=== PATIENT | female | born 1925 ===

== ENCOUNTER 2016-08-26 07:47 | Observation (INO) | payer OTHER ==
[2016-08-26 07:49] VITALS: BMI 20.9
--- NOTE | 2016-08-26 07:59 | ED PDOC ---
HPI: Back Time Seen by Provider: 08/26/16 07:54 Chief Complaint (Nursing): Back Pain Chief Complaint (Provider): back pain History Per: Patient History/Exam Limitations: no limitations Current Symptoms Are (Timing): Still Present Associated Symptoms: None Past Medical History Reviewed: Historical Data, Nursing Documentation, Vital Signs Vital Signs: Last Vital Signs Temp 97.9 F 08/26/16 07:49 Pulse 89 08/26/16 07:49 Resp 18 08/26/16 07:49 BP 149/85 08/26/16 07:49 Pulse Ox 100 08/26/16 07:49 - Medical History PMH: Anemia, Anxiety, Arthritis, CHF, Dementia, Depression, Gastritis, HTN, Hypercholesterolemia, Osteoporosis Denies: COPD, Hypothyroidism, Chronic Kidney Disease, Rheumatoid Arthritis - Surgical History Surgical History: Cholecystectomy (GB surgery , 3 yrs ago) - Family History Family History: States: Unknown Family Hx - Home Medications Home Medications: Ambulatory Orders Medication Instructions Recorded Enalapril Maleate 10 mg PO DAILY 12/04/14 Memantine HCl [Namenda Xr] 28 mg PO DAILY 12/04/14 Rivastigmine [Exelon 13.3 mg/24 hr 1 patch TD DAILY 12/04/14 Patch] Aspirin [Ecotrin] 81 mg PO DAILY 04/25/16 Atorvastatin [Lipitor] 40 mg PO HS 04/25/16 Carbamazepine [Carbamazepine ER] 300 mg PO TID 04/25/16 - Allergies Allergies/Adverse Reactions: Allergies Allergy/AdvReac Type Severity Reaction Status Date / Time No Known Allergies Allergy Verified 04/25/16 13:44 - ECG O2 Sat by Pulse Oximetry: 100 (RA) Pulse Ox Interpretation: Normal Medical Decision Making Medical Decision Making: Initial Impression: Back Pain Scribe Attestation: Documented by Sandee Chavez, acting as a scribe for Zachary Zabala MD. Provider Scribe Attestation: All medical record entries made by the Scribe were at my direction and personally dictated by me. I have reviewed the chart and agree that the record accurately reflects my personal performance of the history, physical exam, medical decision making, and the department course for this patient. I have also personally directed, reviewed, and agree with the discharge instructions and disposition.
--- NOTE | 2016-08-26 08:06 | ED PDOC ---
HPI: General Adult Time Seen by Provider: 08/26/16 07:54 Chief Complaint (Nursing): Back Pain Chief Complaint (Provider): back pain History Per: Patient History/Exam Limitations: no limitations Onset/Duration Of Symptoms: Days (x 4) Have you had recent travel within the past 21 days to any of the following countries: [place], [place], [place] or [place]?: No Additional Complaint(s): Felix Jacobson is an 89 year old female, with a previous medical history of hypertension, CHF, syncope and hypertension, who presents to the ED with complaints of back pain secondary to feeling dizzy and falling off her chair 4 days ago. At time of the fall patient reports no neck trauma, no head trauma or loss of consciousness. Patient denies currently having any chest pain, palpitations or headache. PMD: Sam Parada MD Past Medical History Reviewed: Historical Data, Nursing Documentation, Vital Signs Vital Signs: Last Vital Signs Temp 97.9 F 08/26/16 07:49 Pulse 89 08/26/16 07:49 Resp 18 08/26/16 07:49 BP 149/85 08/26/16 07:49 Pulse Ox 100 08/26/16 08:13 - Medical History PMH: Anemia, Anxiety, Arthritis, CHF, Dementia, Depression, Gastritis, HTN, Hypercholesterolemia, Osteoporosis Denies: COPD, Hypothyroidism, Chronic Kidney Disease, Rheumatoid Arthritis - Surgical History Surgical History: Cholecystectomy (GB surgery , 3 yrs ago) - Family History Family History: States: Unknown Family Hx - Home Medications Home Medications: Ambulatory Orders Medication Instructions Recorded Enalapril Maleate 10 mg PO DAILY 12/04/14 Memantine HCl [Namenda Xr] 28 mg PO DAILY 12/04/14 Rivastigmine [Exelon 13.3 mg/24 hr 1 patch TD DAILY 12/04/14 Patch] Aspirin [Ecotrin] 81 mg PO DAILY 04/25/16 Atorvastatin [Lipitor] 40 mg PO HS 04/25/16 Carbamazepine [Carbamazepine ER] 300 mg PO TID 04/25/16 - Allergies Allergies/Adverse Reactions: Allergies Allergy/AdvReac Type Severity Reaction Status Date / Time No Known Allergies Allergy Verified 04/25/16 13:44 Review of Systems ROS Statement: Except As Marked, All Systems Reviewed And Found Negative Cardiovascular: Negative for: Chest Pain, Palpitations Musculoskeletal: Positive for: Back Pain Neurological: Negative for: Headache Physical Exam - Reviewed Nursing Documentation Reviewed: Yes Vital Signs Reviewed: Yes - Physical Exam Appears: Positive for: Well, Non-toxic, No Acute Distress Head Exam: Positive for: ATRAUMATIC, NORMAL INSPECTION, NORMOCEPHALIC Neck: Positive for: Normal, Painless ROM, Supple Cardiovascular/Chest: Positive for: Regular Rate, Rhythm, Chest Non Tender Respiratory: Positive for: CNT, Normal Breath Sounds Back: Positive for: Vertebral Tenderness (lumbar spine tenderness with no defromity. Thoracic spine normal with no tenderness or deformity). Negative for : L CVA Tenderness, R CVA Tenderness Extremity: Positive for: Normal ROM (at the hip and lower extremities ). Negative for: Tenderness (to the hip or lower extremities ), Calf Tenderness, Deformity Neurologic/Psych: Positive for: Alert, Oriented. Negative for: Motor/Sensory Deficits - Laboratory Results Result Diagrams: 08/26/16 09:00 08/26/16 09:00 - ECG O2 Sat by Pulse Oximetry: 100 (RA) Pulse Ox Interpretation: Normal Medical Decision Making Medical Decision Making: Initial Impression: Back Pain Initial Plan: * CT head w/o contrast * EKG * labs * CXR * x-ray lumbar spine * x-ray pelvis * reevaluation Scribe Attestation: Documented by Sandee Chavez, acting as a scribe for Zachary Zabala MD. Provider Scribe Attestation: All medical record entries made by the Scribe were at my direction and personally dictated by me. I have reviewed the chart and agree that the record accurately reflects my personal performance of the history, physical exam, medical decision making, and the department course for this patient. I have also personally directed, reviewed, and agree with the discharge instructions and disposition. Disposition - Clinical Impression Clinical Impression: Near syncope - Patient ED Disposition Is Patient to be Admitted: Yes - Disposition Disposition Time: 09:53 Condition: FAIR - Pt Status Changed To: Hospital Disposition Of: Observation - POA Present On Arrival: None
[2016-08-26 09:08] LABS: BASO % 1.1 % (0.0-2.0); EOS # 0.1 K/uL (0.0-0.7); EOS % 3.2 % (0.0-4.0); HEMATOCRIT 37.9 % (34.0-47.0); LYMPH # 0.9 K/uL (1.0-4.3); LYMPH % 20.4 % (20.0-40.0); MEAN CELL VOLUME 96.5 fl (81.0-99.0); MEAN CORPUSCULAR HEMOGLOBIN 31.6 pg (27.0-31.0); MEAN CORPUSCULAR HGB CONC 32.7 g/dL (33.0-37.0); MEAN PLATELET VOLUME 8.2 fl (7.2-11.7); MONO # 0.3 K/uL (0.0-0.8); MONO % 7.1 % (0.0-10.0); NEUT # 3.1 K/uL (1.8-7.0); NEUT % 68.2 % (50.0-75.0); NRBC % 0.1 % (0.0-0.0); RED CELL DISTRIBUTION WIDTH 13.3 % (11.5-14.5); WHITE BLOOD COUNT 4.5 K/uL (4.8-10.8)
[2016-08-26 09:30] LABS: ALB/GLOB RATIO 1.4 (1.0-2.1); ALKALINE PHOSPHATASE 120 U/L (38-126); ALT/SGPT 32 U/L (9-52); AST/SGOT 38 U/L (14-36); BILIRUBIN,TOTAL 0.3 mg/dl (0.2-1.3); BLOOD UREA NITROGEN 16 mg/dl (7-17); CALCIUM 10.1 mg/dL (8.4-10.2); CARBON DIOXIDE 28 mmol/L (22-30); CHLORIDE 103 mmol/L (98-107); GFR AFRICAN-AMERICAN > 60; GLUCOSE,RANDOM 91 mg/dL (65-105); POTASSIUM 4.6 MMOL/L (3.6-5.0); SODIUM 140 mmol/l (132-148); TOTAL PROTEIN 7.2 G/DL (6.3-8.2)
--- NOTE | 2016-08-26 09:45 | CT ---
PROCEDURE: CT HEAD WITHOUT CONTRAST. HISTORY: r/o bleed COMPARISON: None available. TECHNIQUE: Axial computed tomography images were obtained through the head/brain without intravenous contrast. Radiation dose: Total exam DLP = 746 mGy-cm. This CT exam was performed using one or more of the following dose reduction techniques: Automated exposure control, adjustment of the mA and/or kV according to patient size, and/or use of iterative reconstruction technique. FINDINGS: HEMORRHAGE: No intracranial hemorrhage. BRAIN: No mass effect or edema. chronic microvascular ischemic changes. VENTRICLES: Unremarkable. No hydrocephalus. CALVARIUM: Unremarkable. PARANASAL SINUSES: Unremarkable as visualized. No significant inflammatory changes. MASTOID AIR CELLS: Unremarkable as visualized. No inflammatory changes. OTHER FINDINGS: None. IMPRESSION: No intracranial hemorrhage.
--- NOTE | 2016-08-26 11:04 | RAD ---
HISTORY: trauma COMPARISON: No prior FINDINGS: BONES: Normal. No fracture. JOINTS: Normal. No osteoarthritis. SOFT TISSUE: Normal. OTHER FINDINGS: None . IMPRESSION: Normal Bone Xray.
--- NOTE | 2016-08-26 11:08 | RAD ---
PROCEDURE: Radiographs of the Lumbar Spine. HISTORY: trauma r/o fx COMPARISON: No prior. FINDINGS: BONES: Mild loss of height of L1 vertebral body. Severe osteopenia. DISC SPACES: Unremarkable. OTHER FINDINGS: None. IMPRESSION: Mild loss of height of L1 vertebral body.
--- NOTE | 2016-08-26 11:11 | RAD ---
HISTORY: syncope COMPARISON: No prior. TECHNIQUE: Chest PA and lateral FINDINGS: LUNGS: No active pulmonary disease. PLEURA: No significant pleural effusion identified. No pneumothorax apparent. CARDIOVASCULAR: Normal. OSSEOUS STRUCTURES: No significant abnormalities. VISUALIZED UPPER ABDOMEN: Normal. OTHER FINDINGS: None. IMPRESSION: No active disease.
--- NOTE | 2016-08-26 11:29 | CARD ---
APPROVED REPORT EKG Measurement Heart [id number] VT 148P-8 [id number] <Conclusion> Normal sinus rhythm Normal ECG
--- NOTE | 2016-08-26 13:57 | CP.PCM.HP ---
History of Present Illness - History of Present Illness History of Present Illness: CC: Back pain. 89 y/o F brought to ER [facility] to be evaluated for Back pain, onset 4 days PHLEBOTOMIST LAB ASSISTANT, Pt taking Tramadol with no relief. 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 Aggravated factor : Worsening with movements/exercise. Hx of falls. Pt denied: Fever, chills, neck or head trauma, LOC, headache, abdominal pain, n/ v/d, slurred speech, numbness,CP, SOB, Urinary symptoms, sick contact, recent travel. PMHx: CHF. HTN, Syncope, O/A, Gastritis, Anemia, Hypercholesterolemia, Osteoporosis, Anxiety, depression, Dementia. EKG shows: Normal sinus rhythm. CXR: No active disease. CT Head: No intracranial hemorrhage. Lumbar Spine X-Ray: Severe Osteopenia. Pelvis X-Ray: WNL. Present on Admission - Present on Admission Any Indicators Present on Admission: No Review of Systems - Constitutional Constitutional: Weakness - EENT Eyes: Other (Glaucoma L eye) Ears: Decreased Hearing Nose/Mouth/Throat: Other (egative) - Cardiovascular Cardiovascular: Other (negative) - Respiratory Respiratory: Other (negative) - Gastrointestinal Gastrointestinal: Other (negative) - Genitourinary Genitourinary: Other (negative) - Musculoskeletal Musculoskeletal: Arthralgias, Back Pain, Muscle Weakness - Integumentary Integumentary: Other (negative) - Neurological Neurological: Dizziness, Frequent Falls - Psychiatric Psychiatric: Anxiety, Depression - Endocrine Endocrine: Other (negative) - Hematologic/Lymphatic Hematologic: Other (negative) Past Patient History - Infectious Disease Hx of Infectious Diseases: None - Past Medical History & Family History Past Medical History?: Yes Pertinent Family History: Unknown - Past Social History Smoking Status: Never Smoked Alcohol: None Drugs: Denies Home Situation {Lives}: With Family - CARDIAC Hx Cardiac Disorders: Yes Hx Congestive Heart Failure: Yes Hx Hypercholesterolemia: Yes Hx Hypertension: Yes Hx Hypotension: Yes (orthostatic) - PULMONARY Hx Chronic Obstructive Pulmonary Disease (COPD): No - NEUROLOGICAL Hx Neurological Disorder: Yes Hx Dementia: Yes - HEENT Hx HEENT Problems: Yes (hard of hearing) Hx Cataracts: Yes (L eye) - RENAL Hx Chronic Kidney Disease: No - ENDOCRINE/METABOLIC Hx Hypothyroidism: No - HEMATOLOGICAL/ONCOLOGICAL Hx Blood Disorders: Yes Hx Anemia: Yes - INTEGUMENTARY Hx Dermatological Problems: No - MUSCULOSKELETAL/RHEUMATOLOGICAL Hx Musculoskeletal Disorders: Yes Hx Arthritis: Yes Hx Falls: Yes Hx Osteoporosis: Yes Hx Rheumatoid Arthritis: No - GASTROINTESTINAL Hx Gastrointestinal Disorders: Yes Hx Gastritis: Yes - GENITOURINARY/GYNECOLOGICAL Hx Genitourinary Disorders: No - PSYCHIATRIC Hx Psychophysiologic Disorder: Yes Hx Anxiety: Yes Hx Depression: Yes Hx Substance Use: No - SURGICAL HISTORY Hx Surgeries: Yes Hx Cholecystectomy: Yes (GB surgery , 3 yrs ago) - ANESTHESIA Hx Anesthesia: Yes Hx Anesthesia Reactions: No Hx Malignant Hyperthermia: No Meds Allergies/Adverse Reactions: Allergies Allergy/AdvReac Type Severity Reaction Status Date / Time No Known Allergies Allergy Verified 04/25/16 13:44 Physical Exam - Constitutional Appears: No Acute Distress - Head Exam Head Exam: NORMAL INSPECTION - Eye Exam Eye Exam: PERRL - ENT Exam ENT Exam: Normal Oropharynx - Neck Exam Neck exam: Positive for: Normal Inspection - Respiratory Exam Respiratory Exam: NORMAL BREATHING PATTERN - Cardiovascular Exam Cardiovascular Exam: REGULAR RHYTHM, Systolic Murmur (1/6 LSB) - GI/Abdominal Exam GI & Abdominal Exam: Normal Bowel Sounds, Soft - Extremities Exam Extremities exam: Positive for: normal inspection - Back Exam Back exam: NORMAL INSPECTION - Neurological Exam Neurological exam: Alert Additional comments: Oriented x2, forgetful, no focal motor sensory deficit. - Psychiatric Exam Psychiatric exam: Depressed - Skin Skin Exam: Warm Results - Vital Signs Recent Vital Signs: Last Vital Signs Temp 97.9 F 08/26/16 07:49 Pulse 72 08/26/16 12:21 Resp 18 08/26/16 12:21 BP 149/85 08/26/16 07:49 Pulse Ox 97 08/26/16 12:21 reviewed J.P. - Labs Result Diagrams: 08/26/16 09:00 08/26/16 09:00 Labs: reviewed J.P. - EKG Data EKG comments: reviewed J.P. - Imaging and Cardiology Chest x-ray Status: Report reviewed by me (JJacquelineP.) CT scan - head Status: Report reviewed by me (JJacquelineP.) Additional comment: Pelvis X-Ray and Lumbar Spine X-Ray reviewed J.P. Assessment & Plan (1) Near syncope Status: Acute Priority: High (2) Hypertension Status: Chronic Priority: Medium (3) High cholesterol Status: Chronic Priority: Low (4) Osteopenia Status: Chronic Priority: Medium (5) Dementia Status: Chronic Priority: Low - Assessment and Plan (Free Text) Plan: F/U CT Lumbar Spine, Continue Aspirin 81 mg, Vasotec, Lovaza, Lipitor, Exelon patch, Oscal and rest of Tx, F/U PT eval, Neuro and Cardiac Consult. - Date & Time Date: 08/26/16 Time: 13:10
[2016-08-26] MEDS ORDERED: Ergocalciferol 50,000 Intl Units Cap PO SCH (15:00)
[2016-08-26] MEDS: Omega-3-Acid Ethyl Esters 1 GM Cap PO SCH (17:14)
--- NOTE | 2016-08-26 17:23 | CON ---
DATE: 08/26/2016 LOCATION: Room 408, bed 1. REASON FOR CONSULTATION: History of fall. CHIEF COMPLAINT: The patient was brought in to [facility] 4 days after her fall. From a neurological point of view, I was called in to evaluate her for neurological management. 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 Has been on medication and has been taking medication for her trigeminal neuralgia and peripheral neuropathy, being stable, used to followed me every 3 months. She used to walk with the assistance of a cane. She claims that on she was at home, she tripped and fell down on the floor and she got on her own. Prior to the fall, she felt lightheadedness. No association of loss of consciousness, bowel or bladder incontinence or bitten tongue. She denies any loss of consciousness as well as no change in mental status ever since she fell. She told the event to her son and her son advised her to come to the hospital for further evaluation. PAST MEDICAL HISTORY: CHF, history of syncopal attack in the past, hypertension , dementia, trigeminal neuralgia and hypothyroidism. PERSONAL HISTORY: Denies smoking or alcohol use. MEDICATIONS: She has been taking Exelon patch, Namenda, aspirin, carbamazepine and Vasotec. REVIEW OF SYSTEMS: As per H and P. PHYSICAL EXAMINATION: VITAL SIGNS: Blood pressure 126/63, mean arterial pressure of 84, respiratory rate 16, temperature afebrile. NECK: Supple. No carotid bruit. HEART: Sounds regular. CHEST: Has fair air entry. EXTREMITIES: No edema in legs. NEUROLOGIC EXAMINATION: The patient is awake, alert, oriented to person, place , and time. Speech is clear. Naming, repetition, fluency and comprehension are all intact. Her mentation is to her baseline. Her mentation is good for her age. No hallucinations. No suicidal ideation, no sign of depression. CRANIAL NERVE EXAMINATION: Responds to visual threat on both sides but no facial asymmetry. Hearing is normal. Tongue is midline. Good gag. MOTOR: Outstretched hand with eyes closed, no drift noted. Power is symmetric on either side. DEEP TENDON REFLEXES: Biceps, brachioradialis, triceps 2+ on either side. Both knees are 2+. Both ankles are absent. Plantars are downgoing. COORDINATION: [id number] test showed mild dysmetria. This is to her baseline. GAIT: Deferred at this time. CONCLUSION: Upon reviewing her history and neurological examination, the patient has been presenting with lightheadedness with the fall. From the fall, she did not hit her head. She did not hit any part of the body. The current examination does not show any lateralizing sign. WORKUP: A CT of the head reviewed by me, no acute pathology noted, mild atrophy noted. EKG: Normal sinus rhythm. BLOOD WORKUP: WBC 4.5, hemoglobin 12.4, hematocrit 37.9, platelets 185. Sodium 140, potassium 4.6, chloride 103, bicarbonate 28, BUN 16, creatinine more than 60. AST 38. RECOMMENDATIONS: 1. Check carbamazepine level and keep it therapeutic range. 2. Continue Namenda and Exelon patch as she has been getting it. If the patient is stable for the next 24-hour period, the patient can be discharged and can be followed by me as an outpatient. No further workup is needed. Sam Parada MD cc: [id number] TT: 08/26/2016 17:21:50 Confirmation # [id number] Dictation # [id number] dn MTDD
--- NOTE | 2016-08-26 20:50 | CON ---
DATE: 08/26/2016 REASON FOR CONSULTATION: Syncope. HISTORY OF PRESENT ILLNESS: The patient is an 89-year-old female who has a history of hyper tension and CHF. She presents because of a fall after feeling dizzy from her chair and sustaining lo wer back pain. The patient denies any headache, chest pain or dizziness. SOCIAL HISTORY: The patient is a nonsmoker. MEDICATIONS: Aspirin 81 mg once a day, Lipitor 40 mg once a day, Lovaza 2 grams p.o. twice a day, Na menda 10 mg twice a day, Tegretol 300 mg t.i.d., mg daily. The patient's home medications incl ude enalapril, Namenda, Exelon, Tegretol, aspirin, Lipitor, omega 3 fatty acid and Tylenol. REVIEW OF SYSTEMS: No nausea or vomiting, no fever or chills, no productive cough. PHYSICAL EXAMINATION: GENERAL: The patient is an elderly female who does not appear to be in any distress. VITAL SIGNS: Blood pressure 126/63, heart rate 75, temperature 98.9, respirations 20. HEENT: Normocephalic. NECK: No JVD. CHEST: Clear. HEART: S1, S2 regular. ABDOMEN: Soft. EXTREMITIES: No edema. LABORATORY DATA: SMA-7 is within normal limits. CBC: WBC 4.5, hemoglobin 12.4, hematocrit 37.9, pl atelet count 185,000. EKG revealed normal sinus rhythm. A pelvic x-ray was unremarkable. Lumbar sp ine x-ray revealed mild loss of height of L1 vertebral body. Head CT scan without contrast revealed no acute intracranial findings. Echocardiographic study performed in April of this year revealed a n ejection fraction in the range of 60% to 65%, normal left ventricular size and wall thickness. ASSESSMENT: 1. Dizziness and near syncope. 2. A fall with lower back pain. 3. Hypertension. RECOMMENDATIONS: Continue current conservative medical approach including aspirin 81 mg once a day, Lipitor at 40 mg once a day, Lovaza 2 grams p.o. twice a day, Namenda 10 mg twice a day and Vasotec 1 0 mg daily. Continue current telemetry monitoring. I recommend fall precautions. Sushant Meyer MD cc: [id number] TT: 08/26/2016 20:49:19 Confirmation # [id number] Dictation # [id number] dn
[2016-08-27 08:31] LABS: BASO # 0.1 K/uL (0.0-0.2); BASO % 1.7 % (0.0-2.0); EOS # 0.1 K/uL (0.0-0.7); EOS % 3.8 % (0.0-4.0); HEMATOCRIT 35.1 % (34.0-47.0); LYMPH # 1.2 K/uL (1.0-4.3); LYMPH % 32.8 % (20.0-40.0); MEAN CELL VOLUME 95.7 fl (81.0-99.0); MEAN CORPUSCULAR HEMOGLOBIN 32.5 pg (27.0-31.0); MEAN CORPUSCULAR HGB CONC 33.9 g/dL (33.0-37.0); MEAN PLATELET VOLUME 8.4 fl (7.2-11.7); MONO # 0.4 K/uL (0.0-0.8); MONO % 9.5 % (0.0-10.0); NEUT % 52.2 % (50.0-75.0); NRBC % 0.1 % (0.0-0.0); RED CELL DISTRIBUTION WIDTH 13.2 % (11.5-14.5); WHITE BLOOD COUNT 3.8 K/uL (4.8-10.8)
[2016-08-27 08:47] LABS: BLOOD UREA NITROGEN 16 mg/dl (7-17); CALCIUM 10.1 mg/dL (8.4-10.2); CARBON DIOXIDE 29 mmol/L (22-30); CHLORIDE 103 mmol/L (98-107); CHOLESTEROL 215 mg/dL (0-199); GFR AFRICAN-AMERICAN > 60; GLUCOSE,RANDOM 84 mg/dL (65-105); POTASSIUM 4.4 MMOL/L (3.6-5.0); SODIUM 137 mmol/l (132-148)
[2016-08-27 08:52] LABS: T4 5.75 ug/dl (5.5-11.0)
[2016-08-27 09:06] LABS: THYROID STIMULATING HORMONE 3.02 mIU/ML (0.46-4.68)
[2016-08-27] MEDS: Omega-3-Acid Ethyl Esters 1 GM Cap PO SCH (09:14)
[2016-08-27 10:10] VITALS: BP 138/71; PULSE 78; RESP 20; TEMP 98.1; O2SAT 97
--- NOTE | 2016-08-27 17:05 | CP.PCM.PN ---
Subjective - Date & Time of Evaluation Date of Evaluation: 08/27/16 - Subjective Subjective: F/U Near Syncope. Pt awake, alert, no dizziness, no c/o, no A/D. Objective - Vital Signs/Intake and Output Vital Signs (last 24 hours): Temp Pulse Resp BP Pulse Ox 98.1 F 78 20 138/71 97 08/27/16 09:00 08/27/16 09:00 08/27/16 09:00 08/27/16 09:00 08/27/16 09:00 - Labs Labs: 08/27/16 06:00 08/27/16 06:00 - Constitutional Appears: No Acute Distress - Head Exam Head Exam: NORMAL INSPECTION - Eye Exam Eye Exam: PERRL - ENT Exam ENT Exam: Normal Oropharynx - Neck Exam Neck Exam: Normal Inspection - Respiratory Exam Respiratory Exam: NORMAL BREATHING PATTERN - Cardiovascular Exam Cardiovascular Exam: REGULAR RHYTHM, Murmur (systolic 1/6 LSB) - GI/Abdominal Exam GI & Abdominal Exam: Soft, Normal Bowel Sounds - Extremities Exam Extremities Exam: Normal Inspection - Back Exam Back Exam: NORMAL INSPECTION - Neurological Exam Neurological Exam: Awake Additional comments: Oriented x2, no focal motor sensory deficit. - Psychiatric Exam Psychiatric exam: Depressed - Skin Skin Exam: Warm Assessment and Plan (1) Near syncope Assessment & Plan: Etiology unclear. Status: Acute (2) Hypertension Status: Chronic (3) High cholesterol Status: Chronic (4) Osteopenia Status: Chronic (5) Dementia Status: Chronic - Assessment and Plan (Free Text) Plan: Pt cleared for discharge by Cardiology and Neurology, Pt improved and stable to be discharged, f/u with Neurology Dr. Parada as out Pt
== END 2016-08-27 14:30 | disposition home or self-care (01) ==
LOC: H.ER 07:47 → H.ERHOLD 09:49 → H.TEL 10:46
PROVIDERS: ADMIT Internal Medicine Pulmonary Disease; ATTEND Internal Medicine Pulmonary Disease
DX: R55 Syncope and collapse (principal); I11.0 Hypertensive heart disease with heart failure; I50.9 Heart failure, unspecified; E03.9 Hypothyroidism, unspecified; E78.00 Pure hypercholesterolemia, unspecified; G50.0 Trigeminal neuralgia; G62.9 Polyneuropathy, unspecified; M81.0 Age-related osteoporosis without current pathological fracture; M85.80 Other specified disorders of bone density and structure, unspecified site; F03.90 Unspecified dementia, unspecified severity, without behavioral disturbance, psychotic disturbance, mood disturbance, and anxiety; K29.70 Gastritis, unspecified, without bleeding; F41.9 Anxiety disorder, unspecified; F32.9 Major depressive disorder, single episode, unspecified
CPT/HCPCS: 36415; 70450; 71020; 72110; 72170; 80048; 80053; 80061; 80156; 82306; 82607; 84436; 84443; 84484; 85025; 93005; 99285; G0378